=== PATIENT | female | born 2000 | race Caucasian/White ===

== ENCOUNTER 2020-05-03 23:52 | Emergency (ER) | payer OTHER ==
[~2020-05-03] VITALS: Ht 162.6 cm; Wt 61.9 kg
[2020-05-03 23:54] VITALS: BP 122/77
--- NOTE | 2020-05-04 00:05 | NUR ---
Pt came out of room and states "if i dont have money, will i still be seen?....i cant pay my bill, should i just leave?" This rn educated pt on staying if they feel they have a medical emergency, but it is in their right to leave if they wish. Pt and friend went into room awaiting ERP assessment.
[2020-05-04] MEDS ORDERED: HYDROcodone/APAP 5/325 TABLET ONE (01:25)
[2020-05-04] MEDS ORDERED: HYDROcodone/APAP 5/325 TABLET PO ONE (01:30)
== END 2020-05-04 01:58 | disposition home or self-care (01) ==
LOC: ED 05-04 01:08
DX: S62.303A Unspecified fracture of third metacarpal bone, left hand, initial encounter for closed fracture (principal); S52.125A Nondisplaced fracture of head of left radius, initial encounter for closed fracture; F17.200 Nicotine dependence, unspecified, uncomplicated; W18.39XA Other fall on same level, initial encounter; Y93.73 Activity, racquet and hand sports; Y92.89 Other specified places as the place of occurrence of the external cause; Y99.8 Other external cause status
CPT/HCPCS: 29130; 99284